=== PATIENT | female | born 1950 | race Caucasian/White ===

== ENCOUNTER → 2017-12-08 | Outpatient (CLI) | payer MEDICARE ==
--- NOTE | 2017-12-14 12:22 | MM ---
Reason for exam: screening (asymptomatic). Last mammogram was performed 1 year and 10 months ago. History: Patient is postmenopausal and had first child at age 33. Family history of breast cancer in sister at age 60. Physical Findings: A clinical breast exam by your physician is recommended on an annual basis and results should be correlated with mammographic findings. MG 3D Screening Mammo W/Cad Bilateral CC and MLO view(s) were taken. Prior study comparison: February 13, 2016, mammogram, performed at [facility]. August 18, 2014, mammogram, performed at [facility]. There are scattered fibroglandular densities. Finding: There is a 9 mm mass in the subareolar position of the right breast. ASSESSMENT: Incomplete: need additional imaging evaluation, BI-RAD 0 RECOMMENDATION: Special view mammogram of the right breast. If lesion persists on supplemental views, image directed ultrasound is recommended. [facility] will attempt to contact patient to return for supplemental views and ultrasound if indicated.
== END | disposition home or self-care (01) ==
LOC: RADMAMWWP 10:31
PROVIDERS: ATTEND Obstetrics & Gynecology
DX: Z12.31 Encounter for screening mammogram for malignant neoplasm of breast (principal)
CPT/HCPCS: 77063; 77067

== ENCOUNTER → 2017-12-16 | Outpatient (CLI) | payer MEDICARE ==
--- NOTE | 2017-12-16 14:17 | MM ---
Reason for exam: additional evaluation requested from abnormal screening. Last mammogram was performed less than 1 month ago. History: Patient is postmenopausal and had first child at age 33. Family history of breast cancer in sister at age 60. Physical Findings: Nurse did not find any significant physical abnormalities on exam. MG 3D Work Up W/Cad RT Spot compression CC, spot compression MLO, and ML view(s) were taken of the right breast. Prior study comparison: December 08, 2017, bilateral MG 3d screening mammo w/cad. February 13, 2016, mammogram, performed at [facility]. Nodule persists ultrasound recommended. These results were verbally communicated with the patient and result sheet given to the patient on 12/16/17. ASSESSMENT: Incomplete: need additional imaging evaluation, BI-RAD 0 RECOMMENDATION: Ultrasound of the right breast.
--- NOTE | 2017-12-16 14:19 | USB ---
Reason for exam: additional evaluation requested from abnormal screening. History: Patient is postmenopausal and had first child at age 33. Family history of breast cancer in sister at age 60. US Breast Workup Limited RT Right limited breast ultrasound including focal area of concern, retroareolar and axilla demonstrates a 6 x 3 x 4mm mixed, hypoechoic lesion at the posterior nipple. These results were verbally communicated with the patient and result sheet given to the patient on 12/16/17. ASSESSMENT: Suspicious, BI-RAD 4 RECOMMENDATION: Ultrasound core biopsy of the right breast. Called Dr. Oconnell with mammographic findings. Biopsy scheduled for 12/23/17 at 2 o'clock. PRELIMINARY REPORT CALLED AND FAXED TO DR. OCONNELL ON 12/16/17.
== END | disposition home or self-care (01) ==
LOC: RADMAMWWP 11:01
PROVIDERS: ATTEND Obstetrics & Gynecology
DX: R92.8 Other abnormal and inconclusive findings on diagnostic imaging of breast (principal)
CPT/HCPCS: 77065; 76642; G0279; 77061

== ENCOUNTER → 2017-12-22 | Day surgery (SDC) | payer MEDICARE ==
[2017-12-22 13:28] VITALS: RESP 16; BMI 36.7
--- NOTE | 2017-12-22 14:47 | USB ---
ULTRASOUND GUIDED CORE BIOPSY RIGHT BREAST: CLINICAL HISTORY: Request for biopsy of a 6 mm right breast lesion at the 9:00 position FINDINGS: The procedure was explained to the patient. The risks, complications, benefits and alternatives were discussed and any questions were answered. Informed consent was obtained. Patient was placed supine on the ultrasound table and prepped and draped in the usual sterile fashion. Utilizing a 16 gauge needle, five passes were made into the requested nodule. Next Surgical clip was placed. Mammogram demonstrated ideal placement of the clip post procedure Patient was stable throughout the procedure. Pathology is pending. All elements of maximal barrier technique were utilized. IMPRESSION: 1. Successful ultrasound guided core biopsy right breast nodule. Pathology Results: Benign RIGHT BREAST, 9:00, ULTRASOUND GUIDED CORE BIOPSY: Fibrocystic changes including fibrosis, cysts and chronic inflammation. Recommendation Follow up mammogram of the right breast in 6 months. DEO
--- NOTE | 2017-12-22 14:57 | MM ---
Reason for exam: additional evaluation requested from abnormal screening. Last mammogram was performed less than 1 month ago. History: Patient is postmenopausal and had first child at age 33. Family history of breast cancer in sister at age 60. MG Diagnostic Mammo RT Wo CAD CC and MLO view(s) were taken of the right breast. Prior study comparison: December 16, 2017, right breast MG 3d work up w/cad RT. December 08, 2017, bilateral MG 3d screening mammo w/cad. ASSESSMENT: Post procedure mammogram for marker placement RECOMMENDATION: Ultrasound of the right breast in 6 months. PENDING PATHOLOGY RESULTS.
[2017-12-22 14:59] VITALS: BP 106/68; PULSE 72; TEMP 98
== END ==
LOC: RADUSWWP 12:58
PROVIDERS: ATTEND Obstetrics & Gynecology
DX: N60.31 Fibrosclerosis of right breast (principal)
CPT/HCPCS: 88305; 77065; 19083; A4648; J2001

== ENCOUNTER → 2018-07-29 | Outpatient (CLI) | payer MEDICARE ==
--- NOTE | 2018-07-29 11:46 | MM ---
Reason for exam: follow-up at short interval from prior study. Last mammogram was performed 7 months ago. History: Patient is postmenopausal, history of other cancer, and had first child at age 33. Family history of breast cancer in sister at age 60 and breast cancer in paternal cousin. Benign US breast needle core RT of the right breast, December 22, 2017. Physical Findings: Nurse did not find any significant physical abnormalities on exam. MG 3D Diag Mammo W/Cad RT CC, MLO, and XCCL view(s) were taken of the right breast. Prior study comparison: December 22, 2017, right breast MG diagnostic mammo RT wo CAD. December 16, 2017, right breast MG 3d work up w/cad RT. There are scattered fibroglandular densities. Previous mammotome biopsy in the right breast at the site of recent benign biopsy. No significant new findings when compared with previous films. These results were verbally communicated with the patient and result sheet given to the patient on 07/29/18. ASSESSMENT: Incomplete: need additional imaging evaluation, BI-RAD 0 RECOMMENDATION: Ultrasound of the right breast. (as ordered)
--- NOTE | 2018-07-29 11:48 | USB ---
Reason for exam: follow-up at short interval from prior study. History: Patient is postmenopausal, history of other cancer, and had first child at age 33. Family history of breast cancer in sister at age 60 and breast cancer in paternal cousin. Benign US breast needle core RT of the right breast, December 22, 2017. US Breast RT Right complete breast ultrasound includes all four quadrants, the retroareolar region and axilla. Finding demonstrates a 4 x 3 x 4mm oval, solid, hypoechoic lesion at the posterior nipple, previously biopsied, benign and a 8mm oval lymph node at the axilla tail, prominent, benign appearing node, stable. These results were verbally communicated with the patient and result sheet given to the patient on 07/29/18. ASSESSMENT: Benign, BI-RAD 2 RECOMMENDATION: Return to routine screening mammogram schedule for both breasts.
== END | disposition home or self-care (01) ==
LOC: RADMAMWWP 09:45
PROVIDERS: ATTEND Obstetrics & Gynecology
DX: R92.8 Other abnormal and inconclusive findings on diagnostic imaging of breast (principal)
CPT/HCPCS: 77065; 76641; G0279; 77061

== ENCOUNTER → 2019-04-27 | Outpatient (CLI) | payer MEDICARE, OTHER ==
--- NOTE | 2019-04-28 09:13 | MM ---
Reason for exam: screening (asymptomatic). Last mammogram was performed 9 months ago. History: Patient is postmenopausal, has history of other cancer at age 59, and had first child at age 33. Family history of breast cancer in sister at age 60 and breast cancer in paternal cousin. Benign US breast needle core RT of the right breast, December 22, 2017. Took other hormone for 15 years. Physical Findings: A clinical breast exam by your physician is recommended on an annual basis and results should be correlated with mammographic findings. MG 3D Screening Mammo W/Cad Bilateral CC and MLO view(s) were taken. Prior study comparison: July 29, 2018, right breast MG 3d diag mammo w/cad RT. December 22, 2017, right breast MG diagnostic mammo RT wo CAD. There are scattered fibroglandular densities. There are benign appearing round calcifications bilaterally. Previous mammotome biopsy in the right breast. There is no discrete abnormality. ASSESSMENT: Benign, BI-RAD 2 RECOMMENDATION: Routine screening mammogram of both breasts in 1 year.
== END | disposition home or self-care (01) ==
LOC: RADMAMWWP 15:13
PROVIDERS: ATTEND Obstetrics & Gynecology
DX: Z12.31 Encounter for screening mammogram for malignant neoplasm of breast (principal)
CPT/HCPCS: 77063; 77067

== ENCOUNTER 2019-08-23 07:34 | Day surgery (SDC) | payer MEDICARE ==
[2019-08-19 14:35] VITALS: BMI 38.2
[2019-08-23 07:52] VITALS: RESP 16; TEMP 96.5
[2019-08-23] MEDS ORDERED: LACTATED RINGERS 1,000 ML IV ONE (08:05)
[2019-08-23] MEDS ORDERED: PROPOFOL 10 MG/ML 20 ML VIAL IV ONE (08:24)
--- NOTE | 2019-08-23 08:28 | P.GSHP ---
History of Present Illness H&P Date: 08/23/19 Chief Complaint: Colon cancer screening Patient here today for colonoscopy. Both her mother and grandfather had colon cancer. Her last colonoscopy was 6-7 years ago. No bowel related complaints. Past Medical History Past Medical History: GERD/Reflux, Hypertension, Osteoarthritis (OA) History of Any Multi-Drug Resistant Organisms: None Reported Past Surgical History: Adenoidectomy, Bladder Surgery, Cholecystectomy, Hernia Repair, Hysterectomy, Orthopedic Surgery, Tonsillectomy Additional Past Surgical History / Comment(s): Shoulder & knee surgery, bilat eral bunionectomy,esophageal dilitation, skin cancer on face. Past Anesthesia/Blood Transfusion Reactions: No Reported Reaction Past Psychological History: No Psychological Hx Reported Past Alcohol Use History: None Reported Past Drug Use History: None Reported - Past Family History Mother Family Medical History: Cancer Additional Family Medical History / Comment(s): rectal cancer Sister(s) Family Medical History: Cancer Additional Family Medical History / Comment(s): breast cancer at 60 Father Family Medical History: Hypertension Additional Family Medical History / Comment(s): Parkinsons Medications and Allergies Home Medications Medication Instructions Recorded Confirmed Type Aspirin [Adult Low Dose Aspirin EC] 81 mg PO DAILY 12/17/17 08/19/19 History Lisinopril [Zestril] 1 tab PO DAILY 12/17/17 08/19/19 History Omeprazole [PriLOSEC] 20 mg PO DAILY 12/17/17 08/19/19 History Zolpidem [Ambien] 5 mg PO HS PRN 12/17/17 08/19/19 History Cholecalciferol [Vitamin D3] 400 unit PO DAILY 08/19/19 08/19/19 History Fish Oil/Dha/Epa [Fish Oil 1,200 2,400 units PO DAILY 08/19/19 08/19/19 History mg Fish Oil] PARoxetine HCL [Paxil] 20 mg PO DAILY 08/19/19 08/19/19 History Allergies Allergy/AdvReac Type Severity Reaction Status Date / Time Penicillins Allergy Rash/Hives Verified 08/23/19 07:46 Sulfa (Sulfonamide Allergy Rash/Hives Verified 08/23/19 07:46 Antibiotics) Surgical - Exam Vital Signs Temp Pulse Resp BP Pulse Ox 96.5 F L 103 H 16 125/78 95 08/23/19 07:51 08/23/19 07:51 08/23/19 07:51 08/23/19 07:51 08/23/19 07:51 Physical exam: General: Well-developed, well-nourished HEENT: Normocephalic, sclerae nonicteric Abdomen: Nontender, nondistended Extremities: No edema Neuro: Alert and oriented Assessment and Plan (1) Colon cancer screening Narrative/Plan: Will proceed with colonoscopy at this time Current Visit: Yes Status: Acute Code(s): Z12.11 - ENCOUNTER FOR SCREENING FOR MALIGNANT NEOPLASM OF COLON SNOMED Code(s): 524777727
--- NOTE | 2019-08-23 08:41 | P.PCN ---
Date of Procedure: 08/23/19 Procedure(s) Performed: PREOPERATIVE DIAGNOSIS: Colon cancer screening, family history of colon cancer in mother POSTOPERATIVE DIAGNOSIS: Small rectal polyp, diverticulosis PROCEDURE: Colonoscopy with biopsy ANESTHESIA: MAC SURGEON: Winston Gann M.D. SPECIMENS: Rectal polyp ENDOSCOPIC PROCEDURE: The patient was placed on the endoscopy table in the left decubitus position. The Olympus colonoscope was inserted into the anus and passed under direct visualization to the base of the cecum. The appendiceal orifice was visualized. From that point the scope was slowly withdrawn inspecting all surfaces carefully. There were no neoplastic inflammatory or polypoid lesions throughout the cecum, ascending, transverse, descending, and sigmoid colon. In the rectum a small polyp was seen and removed using the cold biopsy forceps. There was mild scattered diverticulosis seen throughout the colon. Digital rectal examination was normal. The patient was taken to the recovery room in stable condition per anesthesia guidelines. RECOMMENDATIONS: Await biopsy results. Follow-up colonoscopy 5 years.
[2019-08-23 08:58] VITALS: BP 110/63; PULSE 73
== END 2019-08-23 09:19 ==
LOC: ORWHC2ENDO 07:34
PROVIDERS: ATTEND Surgery
DX: K62.1 Rectal polyp (principal); K57.30 Diverticulosis of large intestine without perforation or abscess without bleeding; I10 Essential (primary) hypertension; K21.9 Gastro-esophageal reflux disease without esophagitis; M19.90 Unspecified osteoarthritis, unspecified site; Z90.49 Acquired absence of other specified parts of digestive tract; Z87.19 Personal history of other diseases of the digestive system; Z90.89 Acquired absence of other organs; Z98.890 Other specified postprocedural states; Z80.0 Family history of malignant neoplasm of digestive organs; Z90.710 Acquired absence of both cervix and uterus; Z85.828 Personal history of other malignant neoplasm of skin; Z80.3 Family history of malignant neoplasm of breast; Z79.82 Long term (current) use of aspirin; Z79.899 Other long term (current) drug therapy; Z88.0 Allergy status to penicillin; Z88.2 Allergy status to sulfonamides; Z82.49 Family history of ischemic heart disease and other diseases of the circulatory system
CPT/HCPCS: 88305; 45380; J2704

== ENCOUNTER → 2020-08-13 | Outpatient (CLI) | payer MEDICARE | END | disposition home or self-care (01) | DX: Z12.31 Encounter for screening mammogram for malignant neoplasm of breast (principal); Z80.3 Family history of malignant neoplasm of breast | CPT/HCPCS: 77063; 77067 ==

== ENCOUNTER 2020-11-30 08:47 | Day surgery (SDC) | payer MEDICARE ==
[2020-11-28 12:26] VITALS: BMI 38.2
[~2020-11-30 08:47] MED LIST: DEXAMETHASONE SOD PHOSPHATE 4 MG/ML 1 ML VIAL IV ONE; HYDROmorphone 0.5 MG/0.5 ML SYRINGE IVP PRN; LACTATED RINGERS 1,000 ML IV SCH; MIDAZOLAM 2 MG/2 ML VIAL IV PRN; ONDANSETRON 4 MG/2 ML VIAL IVP ONE
[2020-11-30 09:27] VITALS: TEMP 96.8
[2020-11-30] MEDS ORDERED: LIDOCAINE 1% (10MG/ML) FOR IV START INTRADERMA ONE (09:56)
[2020-11-30] MEDS ORDERED: MIDAZOLAM 2 MG/2 ML VIAL IVP ONE (10:17)
[2020-11-30] MEDS ORDERED: ePHEDrine SULFATE/0.9% NACL/PF 50 MG/5 ML SYRINGE IV ONE (11:26)
[2020-11-30] MEDS ORDERED: KETAMINE 10 MG/ML 20 ML VIAL ONE (11:26)
[2020-11-30] MEDS ORDERED: fentaNYL (PF) 50 MCG/ML 2 ML AMP ONE (11:26)
[2020-11-30] MEDS ORDERED: PROPOFOL 10 MG/ML 20 ML VIAL IV ONE (11:26)
[2020-11-30] MEDS ORDERED: DEXAMETHASONE SOD PHOSPHATE 4 MG/ML 1 ML VIAL ONE (11:26)
[2020-11-30] MEDS ORDERED: LIDOCAINE 1% INJ 10MG/ML (20 ML MDV) ONE (11:26)
[2020-11-30] MEDS ORDERED: MIDAZOLAM 2 MG/2 ML VIAL ONE (11:26)
[2020-11-30] MEDS ORDERED: SUCCINYLCHOLINE CHLORIDE 100 MG/5 ML SYR IV ONE (11:26)
[2020-11-30] MEDS ORDERED: ROPIVACAINE 5 MG/ML 30 ML VIAL ONE (11:26)
[2020-11-30] MEDS ORDERED: SODIUM CHLORIDE 0.9% 100 ML with CLINDAMYCIN 600 MG IV ONE ×2 (11:35)
[2020-11-30] MEDS ORDERED: LACTATED RINGERS 1,000 ML IV ONE (12:30)
--- NOTE | 2020-11-30 13:12 | XR ---
EXAMINATION TYPE: XR ankle complete RT DATE OF EXAM: 11/30/2020 COMPARISON: NONE HISTORY: Postop TECHNIQUE: 2 views submitted FINDINGS: Postoperative change appears in near-anatomic alignment. IMPRESSION: Postop
--- NOTE | 2020-11-30 13:12 | FL ---
EXAMINATION TYPE: FL guidance operating room DATE OF EXAM: 11/30/2020 HISTORY: Fluoroscopy time 49 seconds of fluoroscopy provided. IMPRESSION: 1. Fluoroscopy time.
[2020-11-30 13:32] VITALS: RESP 16
--- NOTE | 2020-11-30 14:47 | P.OP ---
Date of Procedure: 11/30/20 Preoperative Diagnosis: Osteoarthritis right ankle Postoperative Diagnosis: Same Procedure(s) Performed: Right ankle arthrodesis Implants: Arthrex anterior ankle fusion plate [employer] Arthrex Arthrocell Anesthesia: GETA Surgeon: Raghav Felipe Estimated Blood Loss (ml): 5 Pathology: none sent Condition: stable Disposition: PACU Indications for Procedure: Severe DJD the right ankle Operative Findings: Full thickness cartilage loss on both the talar dome as well as the tibial surface of the ankle joint Description of Procedure: Prior to the patient being brought to the operating room anesthesia administered nerve block in the right lower extremity under ultrasonic guidance utilizing mild sedation. Patient is a broad the operating room placed on table supine position. Timeout was taken to confirm correct patient, correct site of surgery and correct procedure. Once confirmed the patient was induced and placed under general anesthesia. Tourniquet was placed in the right thigh. A wedge underneath the right hip to internally rotate the right leg. The right leg was prepped and draped usual manner The leg was exsanguinated the tourniquet inflated 250 mmHg. attention was directed over the anterior aspect of the ankle where a linear incision was made between the tibialis anterior and extensor hallucis longus tendons. Incision was deepened through the subcutaneous layer c areful to identify, avoid, and retract any neurovascular structures and cauterize any bleeding vessels. The periosteal incision was made just medial to the tibialis anterior tendon and then subperiosteal dissection was performed to expose the the ankle joint as well as a dorsal surface of the talar neck. Utilizing various osteotomes and curettes the articular cartilage was removed from the tibiotalar surface. Osteotomes were then used to fish scale the subchondral bone. The 2.0mm drill bit was then used to aggressively fenestrate both conjoining surfaces of the arthrodesis. A mixture of [employer] and Arthrex Arthrocell was placed between the arthrodesis surfaces. An Arthrex anterior ankle fusion plate was then positioned and temporarily fixated. Fluoroscopy was used to check the position of the ankle. Adjustments were made to keep the ankle at 90 with slight posterior translation of the talus within the ankle mortise. Once positioning was acceptable on fluoroscopy a wire was placed medial through the tibia across the arthrodesis site to maintain the positioning and then the plate was also temporarily fixated onto the tibia and talus. Distal locking screws were placed through the talus first. Then a hole was eccentric predrilled and the compression slot of the proximal portion of the plate on the tibia. The screws inserted and then once the screw engaged the plate provided compression across the arthrodesis site. The drill hole was made through the interfrag compression hole on the plate. Overdrill was performed to the ankle joint and then a large cancellous screw was inserted and advanced into the talus further compressing the joint. 2 additional locking screws were placed in the talus distally and 3 proximal to the ankle joint. Final fluoro scopic imaging showed a stable construct with good compression across the joint space. All hardware was properly positioned. The wound is then irrigated with normal saline. Deep closure was done with 0 Vicryl. Subcutaneous closure done with 4-0 Monocryl. Skin closure done with zara. An Arthrex jumpstart dressing was placed over the incision. A bulky dry dressings applied to the right foot and ankle. The tourniquet was released and capillary refill return to all digits on the right foot. Then a well-padded, well molded plaster posterior mold/sugar tong splint was applied to the right leg. Once dry the patient was transferred to the recovery with vital signs stable.
[2020-11-30 14:55] VITALS: BP 125/70; PULSE 63
--- NOTE | 2020-12-02 19:35 | P.ANPRN ---
Procedure Note - Anesthesia - Nerve Block Performed Right Popliteal Single Time Out Performed: Yes Date of Procedure: 11/30/20 Procedure Start Time: : Procedure Stop Time: Location of Patient: PreOp Indication: Acute Post-Operative Pain, Requested by Surgeon Sedation Type: Sedate with meaningful contact maintained Preparation: Sterile Prep Position: Left Lateral Needle Types: Pajunk Needle Gauge: 21 Ultrasound used to visualize needle placement: Yes Ultrasound used to observe medication spread: Yes Resistance on Injection: Normal Image Stored and Saved: Yes Events: Uneventful and Well Tolerated (ropi .5% 20cc plus dexamethasone 4mg)
--- NOTE | 2020-12-02 19:36 | P.ANPRN ---
Procedure Note - Anesthesia - Nerve Block Performed Right Adductor Canal Single Time Out Performed: Yes Date of Procedure: 11/30/20 Procedure Start Time: Procedure Stop Time: Location of Patient: PreOp Indication: Acute Post-Operative Pain, Requested by Surgeon Sedation Type: Sedate with meaningful contact maintained Preparation: Sterile Prep Position: Supine Needle Types: Pajunk Needle Gauge: 21 Ultrasound used to visualize needle placement: Yes Ultrasound used to observe medication spread: Yes Blood Aspirated: No Pain Paresthesia on Injection Noted: No Resistance on Injection: Normal Image Stored and Saved: Yes Events: Uneventful and Well Tolerated (ropi .5% 20cc plus dexamethasone 4mg)
== END 2020-11-30 15:16 | disposition home or self-care (01) ==
LOC: OR 08:47
PROVIDERS: ATTEND Podiatrist
DX: M19.071 Primary osteoarthritis, right ankle and foot (principal); I10 Essential (primary) hypertension; E78.5 Hyperlipidemia, unspecified; R00.2 Palpitations; K21.9 Gastro-esophageal reflux disease without esophagitis; Z85.828 Personal history of other malignant neoplasm of skin; Z97.3 Presence of spectacles and contact lenses; F41.9 Anxiety disorder, unspecified; G47.00 Insomnia, unspecified; E66.9 Obesity, unspecified; Z68.36 Body mass index [BMI] 36.0-36.9, adult; Z86.010 Personal history of colon polyps; E55.9 Vitamin D deficiency, unspecified; Z90.710 Acquired absence of both cervix and uterus; Z98.890 Other specified postprocedural states; Z83.3 Family history of diabetes mellitus; Z82.49 Family history of ischemic heart disease and other diseases of the circulatory system; Z87.891 Personal history of nicotine dependence; Z79.1 Long term (current) use of non-steroidal anti-inflammatories (NSAID); Z79.82 Long term (current) use of aspirin; Z79.899 Other long term (current) drug therapy; Z88.0 Allergy status to penicillin; Z88.2 Allergy status to sulfonamides
CPT/HCPCS: 27870; 64447; 64445; 76942; 73610; C1713 ×2; J2250; J1100; J2405; J2001; J3010; J2795; J0330; J2704

== ENCOUNTER → 2021-10-11 | Outpatient (CLI) | payer MEDICARE ==
--- NOTE | 2021-10-15 06:46 | MM ---
Reason for Exam: Screening (asymptomatic). Last mammogram was performed 1 year(s) and 2 month(s) ago. Patient History: Menarche at age 15. First Full-Term at age 33. Late child-bearing (after 30). Left ovary removed at age 43. Right ovary removed at age 43. Hysterectomy at age 43. Postmenopausal. Other cancer, age 59. 12/22/2017, Benign Core Biopsy on the right side. Paternal cousin had breast cancer. Sister had breast cancer, age 60. Risk Values: Blessing 5 year model risk: 3.7%. NCI Lifetime model risk: 10.7%. Prior Study Comparison: 08/18/2014 Screening Mammogram, [facility]. 02/13/2016 Screening Mammogram, [facility]. 12/16/2017 Right Diagnostic Mammogram, [facility]. 12/16/2017 Right Diagnostic Ultrasound, [facility]. 12/22/2017 Right Diagnostic Mammogram, [facility]. 07/29/2018 Right Diagnostic Mammogram, [facility]. 07/29/2018 Right Diagnostic Ultrasound, [facility]. 04/27/2019 Bilateral Screening Mammogram, [facility]. 08/13/2020 Bilateral Screening Mammogram, [facility]. Tissue Density: The breast tissue is almost entirely fat. Findings: Analyzed By CAD. Mammotome biopsy clip upper outer right breast anteriorly redemonstrated. There is no suspicious group of microcalcifications or new suspicious mass in either breast. Overall Assessment: Benign, BI-RAD 2 Management: Screening Mammogram of both breasts in 1 year. A clinical breast exam by your physician is recommended on an annual basis and results should be correlated with mammographic findings. Electronically signed and approved by: Jones Haynes M.D.
== END | disposition home or self-care (01) ==
LOC: RADMAMWWP 14:35
PROVIDERS: ATTEND Family Medicine
DX: Z12.31 Encounter for screening mammogram for malignant neoplasm of breast (principal)
CPT/HCPCS: 77063; 77067

== ENCOUNTER → 2022-11-24 | Outpatient (CLI) | payer MEDICARE ==
--- NOTE | 2022-11-26 09:21 | MM ---
Reason for Exam: Screening (asymptomatic). Last mammogram was performed 1 year(s) and 1 month(s) ago. Patient History: Menarche at age 15. First Full-Term at age 33. Late child-bearing (after 30). Left ovary removed at age 43. Right ovary removed at age 43. Hysterectomy at age 43. Postmenopausal. Other cancer, age 59. 12/22/2017, Benign Core Biopsy on the right side. Paternal cousin had breast cancer. Sister had breast cancer, age 60. Risk Values: Blessing 5 year model risk: 3.8%. NCI Lifetime model risk: 10.2%. Prior Study Comparison: 04/27/2019 Bilateral Screening Mammogram, [facility]. 08/13/2020 Bilateral Screening Mammogram, [facility]. 10/11/2021 Bilateral MG 3D screening mammo w/cad, [facility]. Tissue Density: The breast tissue is almost entirely fat. Findings: Analyzed By CAD. There is no suspicious group of microcalcifications or new suspicious mass in either breast. Overall Assessment: Negative, BI-RAD 1 Management: Screening Mammogram of both breasts in 1 year. . Patient should continue monthly self-breast exams. A clinical breast exam by your physician is recommended on an annual basis. This exam should not preclude additional follow-up of suspicious palpable abnormalities. Note on Blessing scores and lifetime risk: 1. A Blessing score greater than 3% is considered moderate risk. If this is the case, consider specialist referral to assess eligibility for a risk reducing agent. 2. If overall lifetime risk for the development of breast cancer is 20% or higher, the patient may qualify for future screening with alternating mammogram and breast MRI. Electronically signed and approved by: Yobany Damon M.D. Radiologis
== END | disposition home or self-care (01) ==
LOC: RADMAMWWP 12:25
PROVIDERS: ATTEND Family Medicine
DX: Z12.31 Encounter for screening mammogram for malignant neoplasm of breast (principal); Z80.3 Family history of malignant neoplasm of breast; Z78.0 Asymptomatic menopausal state
CPT/HCPCS: 77063; 77067

== ENCOUNTER → 2023-06-09 | Outpatient (CLI) | payer MEDICARE ==
--- NOTE | 2023-06-10 07:06 | CA ---
Transthoracic Echo Report Name: Angie Graf Age: 72 Gender: F : 1950 Exam Date: 06/09/2023 13:39 Exam Location: [facility] Ht (in): 64 Wt (lb): 230 Ordering Physician: Wilbert Lin MD Attending/Referring Phys: Wilbert Lin MD Shank Skinner Bernadine Hernandez RDCS Procedure CPT: Indications: R00.2 palpitations Cardiac Hx: Technical Quality: Good Contrast 1: Total Dose (mL): Contrast 2: Total Dose (mL): MEASUREMENTS (Male / Female) Normal Values 2D ECHO LV Diastolic Diameter PLAX 4.2 cm 4.2 - 5.9 / 3.9 - 5.3 cm LV Systolic Diameter PLAX 3.0 cm IVS Diastolic Thickness 1.1 cm 0.6 - 1.0 / 0.6 - 0.9 cm LVPW Diastolic Thickness 1.1 cm 0.6 - 1.0 / 0.6 - 0.9 cm LV Relative Wall Thickness 0.5 RV Internal Dim ED PLAX 3.0 cm LA Systolic Diameter LX 3.4 cm 3.0 - 4.0 / 2.7 - 3.8 cm LV Diastolic Volume MOD BP 47.7 cm??? 67 - 155 / 56 - 104 cm??? LV Systolic Volume MOD BP 19.9 cm??? 22 - 58 / 19 - 49 cm??? LV Ejection Fraction MOD BP 58.3 % >= 55 % LV Cardiac Index MOD BP 875.4 cm???/min???m??? LV Diastolic Volume MOD 4C 50.2 cm??? LV Systolic Volume MOD 4C 20.3 cm??? LV Ejection Fraction MOD 4C 59.6 % LV Cardiac Index MOD 4C 940.9 cm???/min???m??? LV Diastolic Length 4C 6.7 cm LV Systolic Length 4C 5.6 cm LV Diastolic Volume MOD 2C 45.4 cm??? LV Systolic Volume MOD 2C 17.9 cm??? LV Ejection Fraction MOD 2C 60.5 % LV Cardiac Index MOD 2C 865.7 cm???/min???m??? LV Diastolic Length 2C 6.5 cm LV Systolic Length 2C 6.3 cm LA Volume 37.7 cm??? 18 - 58 / 22 - 52 cm??? LA Volume Index 17.0 cm???/m??? 16 - 28 cm???/m??? M-MODE Aortic Root Diameter MM 3.2 cm MV E Point Septal Separation 1.2 cm AV Cusp Separation MM 2.0 cm DOPPLER AV Peak Velocity 109.4 cm/s AV Peak Gradient 4.8 mmHg MV Area PHT 2.5 cm??? Mitral E Point Velocity 56.4 cm/s Mitral A Point Velocity 81.1 cm/s Mitral E to A Ratio 0.7 MV Deceleration Time 305.6 ms FINDINGS Left Ventricle Left ventricular ejection fraction is estimated at 55-60 %. Left ventricular cavity size normal. Mildly increased septal wall thickness. Mildly increased posterior wall thickness. No obvious regional wall motion abnormalities. Right Ventricle Normal right ventricular size. Unable to estimate the right ventricular systolic pressure. Right Atrium Right atrium not well visualized. Left Atrium Normal left atrial size. No spontaneous echo contrast seen in the left atrium. Mitral Valve Structurally normal mitral valve. No mitral stenosis, regurgitation or prolapse. Aortic Valve Trileaflet aortic valve. No aortic valve stenosis or regurgitation. Tricuspid Valve Structurally normal tricuspid valve. No tricuspid stenosis, regurgitation or prolapse. Pulmonic Valve Pulmonic valve not well visualized. Pericardium Trace pericardial effusion Aorta Normal size aortic root and proximal ascending aorta. CONCLUSIONS Technically difficult study Normal LV systolic function No significant valvular abnormalities Trace pericardial effusion Previewed by: Dr. Nicanor Velasquez MD (Electronically Signed) Final Date: 10 Jun 2023 07:05
== END | disposition home or self-care (01) ==
LOC: RADECHMAIN 13:27
PROVIDERS: ATTEND Family Medicine
DX: I31.39 Other pericardial effusion (noninflammatory) (principal); R00.2 Palpitations
CPT/HCPCS: 93306

== ENCOUNTER → 2023-06-11 | Outpatient (CLI) | payer MEDICARE ==
--- NOTE | 2023-06-22 06:24 | CE ---
CARDIAC ELECTROPHYSIOLOGY REPORT STUDY: A 24-hour Holter monitor. INDICATIONS: Rule out cardiac arrhythmia. FINDINGS: The patient was monitored for 24 hours. The baseline rhythm appeared to be sinus mechanism. Ventricular ectopic events noted in less than 1% of the total beats count as well as supraventricular ectopic events. No significant sinus pause or sinus arrest. CONCLUSION: 1. Sinus rhythm as a baseline mechanism. 2. Rare ventricular and supraventricular ectopic events. 3. No significant sinus pause or sinus arrest. MMODL / IJN: [id number] /
== END | disposition home or self-care (01) ==
LOC: RADECHMAIN 07:33
PROVIDERS: ATTEND Family Medicine
DX: R00.2 Palpitations (principal); I49.8 Other specified cardiac arrhythmias; I49.3 Ventricular premature depolarization
CPT/HCPCS: 93225; 93226

== ENCOUNTER → 2023-12-11 | Outpatient (CLI) | payer MEDICARE ==
--- NOTE | 2023-12-14 13:10 | MM ---
Reason for Exam: Screening (asymptomatic). Last mammogram was performed 1 year(s) and 1 month(s) ago. Patient History: Menarche at age 15. First Full-Term at age 33. Late child-bearing (after 31). Left ovary removed at age 43. Right ovary removed at age 43. Hysterectomy at age 43. Postmenopausal. Other cancer, age 59. 12/22/2017, Benign Core Biopsy on the right side. Paternal cousin had breast cancer. Sister had breast cancer, age 60. Risk Values: Blessing 5 year model risk: 3.8%. NCI Lifetime model risk: 9.7%. Prior Study Comparison: 08/13/2020 Bilateral Screening Mammogram, [facility]. 10/11/2021 Bilateral MG 3D screening mammo w/cad, [facility]. 11/24/2022 Bilateral MG 3D screening mammo w/cad, [facility]. Tissue Density: There are scattered areas of fibroglandular density. Findings: Analyzed By CAD. There is no suspicious group of microcalcifications or new suspicious mass in either breast. Postsurgical clips right breast. Overall Assessment: Benign, BI-RAD 2 Management: Screening Mammogram of both breasts in 1 year. . Patient should continue monthly self-breast exams. A clinical breast exam by your physician is recommended on an annual basis. This exam should not preclude additional follow-up of suspicious palpable abnormalities. Note on Blessing scores and lifetime risk: 1. A Blessing score greater than 3% is considered moderate risk. If this is the case, consider specialist referral to assess eligibility for a risk reducing agent. 2. If overall lifetime risk for the development of breast cancer is 20% or higher, the patient may qualify for future screening with alternating mammogram and breast MRI. [facility], , 12/14/2023 1:06 PM. Electronically signed and approved by: Elliott Govea M.D. Radiologis
== END | disposition home or self-care (01) ==
LOC: RADMAMWWP 13:01
PROVIDERS: ATTEND Family Medicine
DX: Z12.31 Encounter for screening mammogram for malignant neoplasm of breast (principal); R92.323 Mammographic fibroglandular density, bilateral breasts; Z80.3 Family history of malignant neoplasm of breast
CPT/HCPCS: 77063; 77067

== ENCOUNTER → 2024-03-11 | Outpatient (CLI) | payer MEDICARE ==
--- NOTE | 2024-03-11 15:46 | CT ---
EXAMINATION TYPE: CT right knee - AFIA Protocol DATE OF EXAM: 03/11/2024 12:44 PM COMPARISON: None. CLINICAL INDICATION: Female, 73 years old with history of M25.561 PAIN IN RIGHT KNEE, Right AFIA knee ., TECHNIQUE: Contiguous axial scanning of the pelvis, right knee, and bilateral ankles without IV contr ast. Coronal and sagittal reconstructions performed. CT DLP: 833 mGycm. Automated exposure control for dose reduction was used. FINDINGS: Pelvis: There is pelvic floor relaxation. Mild degenerative change at both hips. No significant hip joint eff usion. Patient status post hysterectomy. Right knee: Moderate to severe osteoarthritic change throughout the knee. Moderate knee joint effusion noted. The re is a small to moderate-sized Gibbs's cyst measuring 4.9 cm. Extensor mechanism is intact. Ankles: Previous tibiotalar surgical arthrodesis with anterior plate and screw fixation on the right. Mature bony ankylosis is present. Mild to moderate degenerative change along the posterior subtalar joint. S mall plantar heel spur. IMPRESSION: 1. Pelvis: Pelvic floor relaxation. Mild bilateral hip OA. 2. Right knee: Moderate to severe osteoarthritic change. Moderate knee joint effusion likely reactiv e. Small to moderate-sized 4.9 cm Gibbs cyst. 3. Ankles: Previous tibiotalar surgical arthrodesis on the right. [facility], , 03/11/2024 3:44 PM
== END | disposition home or self-care (01) ==
LOC: RADCTMAIN 11:55
PROVIDERS: ATTEND Orthopaedic Surgery
DX: M17.11 Unilateral primary osteoarthritis, right knee (principal); M16.0 Bilateral primary osteoarthritis of hip

== ENCOUNTER → 2024-04-15 | Outpatient (CLI) | payer MEDICARE ==
[2024-04-15 15:26] LABS: HCT 44.1 % (37.2-46.3); HGB 14.2 g/dL (12.0-15.0); MCH 30.2 pg (27.0-32.0); MCHC 32.2 g/dL (32.0-37.0); MCV 93.8 FL (80.0-97.0); Mean Platelet Volume 12.2 FL (9.5-12.2); NRBC Per 100 WBC 0 X 10*3/uL (0.00-0.01); Platelet Count 251 X 10*3/uL (140-440); RDW 12.8 % (11.5-14.5); WBC 4.25 X 10*3/uL (4.50-10.00)
[2024-04-15 15:32] LABS: ALT 23 U/L (8-44); AST 28 U/L (13-35); Alkaline Phosphatase 59 U/L (41-126); BUN/Creat Ratio 8.86 Ratio (12.00-20.00); Blood Urea Nitrogen 6.2 mg/dL (9.0-27.0); Calcium 9.4 mg/dL (8.7-10.3); Carbon Dioxide 28.4 mmol/L (21.6-31.8); Chloride 105 mmol/L (96-109); Globulin 2.5 g/dL (1.6-3.3); Glucose 136 mg/dL (70-110); Potassium 4.4 mmol/L (3.5-5.5); Sodium 143 mmol/L (135-145); Total Bilirubin 0.3 mg/dL (0.3-1.2); Total Protein 6.5 g/dL (6.2-8.2)
[2024-04-15 15:40] LABS: INR 0.9 (<1.2); Prothrombin Time 10.6 sec (10.0-12.5)
== END | disposition home or self-care (01) ==
LOC: LABPAT 08:20
PROVIDERS: ATTEND Orthopaedic Surgery
DX: Z01.812 Encounter for preprocedural laboratory examination (principal); Z22.322 Carrier or suspected carrier of Methicillin resistant Staphylococcus aureus; E11.9 Type 2 diabetes mellitus without complications; M17.11 Unilateral primary osteoarthritis, right knee
CPT/HCPCS: 80053; 83036; 85027; 85610; 85730; 87070

== ENCOUNTER → 2024-04-15 | Outpatient (CLI) | payer MEDICARE ==
[2024-04-15 15:40] LABS: NT-Pro-B-Type Natriuretic Pept 132 pg/mL (0-125)
[2024-04-15 16:37] LABS: Chol/HDL Ratio 3.62 Ratio; LDL Cholesterol,Calculated 73.7 mg/dL (0.0-131.0)
== END | disposition home or self-care (01) ==
LOC: LABWHC1 08:24
PROVIDERS: ATTEND Student in an Organized Health Care Education/Training Program
DX: Z13.6 Encounter for screening for cardiovascular disorders (principal); I50.9 Heart failure, unspecified; I42.9 Cardiomyopathy, unspecified; E11.9 Type 2 diabetes mellitus without complications; E78.5 Hyperlipidemia, unspecified; E03.9 Hypothyroidism, unspecified; D72.9 Disorder of white blood cells, unspecified; R79.89 Other specified abnormal findings of blood chemistry
CPT/HCPCS: 36415; 80061; 83880; 84443; 84484; 86141

== ENCOUNTER 2024-04-27 13:08 | Observation (INO) | payer MEDICARE ==
[~2024-04-27 13:08] MED LIST changes: -DEXAMETHASONE SOD PHOSPHATE 4 MG/ML 1 ML VIAL IV ONE; -LACTATED RINGERS 1,000 ML IV SCH; -MIDAZOLAM 2 MG/2 ML VIAL IV PRN; -ONDANSETRON 4 MG/2 ML VIAL IVP ONE
[2024-04-27] MEDS: fentaNYL (PF) 50 MCG/ML 2 ML AMP IVP PRN (14:19)
[2024-04-27] MEDS: MIDAZOLAM 2 MG/2 ML VIAL IV ONE (14:20)
[2024-04-27] MEDS: DEXAMETHASONE SOD PHOSPHATE 4 MG/ML 1 ML VIAL IV ONE (14:24)
[2024-04-27] MEDS: ONDANSETRON 4 MG/2 ML VIAL IVP ONE (14:25)
[2024-04-27] MEDS: IV FLUID CONTINUATION 1,000 ML IV ONE (14:33)
[2024-04-27] MEDS: ACETAMINOPHEN TAB 500 MG TAB PO STA (15:06)
[2024-04-27] MEDS: FAMOTIDINE 20 MG/2 ML VIAL IV STA (15:08)
[2024-04-27] MEDS ORDERED: PHENYLEPHRINE-0.9% NACL SYG 1,000 MCG/10 ML SYRINGE ONE (15:09)
[2024-04-27] MEDS ORDERED: PROPOFOL 10 MG/ML 20 ML VIAL IV ONE (15:09)
[2024-04-27] MEDS ORDERED: ePHEDrine 50 MG/ML 1 ML VIAL ONE (15:09)
[2024-04-27] MEDS ORDERED: DEXAMETHASONE SOD PHOSPHATE 4 MG/ML 1 ML VIAL ONE (15:09)
[2024-04-27] MEDS ORDERED: ROPIVACAINE 5 MG/ML 30 ML VIAL ONE (15:09)
[2024-04-27] MEDS ORDERED: GLYCOPYRROLATE 0.2 MG/ML 2 ML VIAL ONE (15:09)
[2024-04-27] MEDS ORDERED: LIDOCAINE 1% INJ 10MG/ML (20 ML MDV) ONE (15:09)
[2024-04-27] MEDS ORDERED: SODIUM CHLORIDE 0.9% (PF) 10 ML VIAL ONE (15:09)
[2024-04-27] MEDS ORDERED: KETAMINE HCL IN 0.9 % NACL 50 MG/5 ML SYRINGE ONE (15:09)
[2024-04-27] MEDS ORDERED: TRANEXAMIC 1,000 MG/100ML-NACL PREMIX BAG ONE (15:09)
[2024-04-27] MEDS ORDERED: ROCURONIUM 10 MG/ML (5 ML VIAL) IV ONE (15:09)
[2024-04-27] MEDS: KETOROLAC 15 MG/ML 1 ML VIAL IVP STA (15:09)
[2024-04-27] MEDS ORDERED: WATER FOR INJECTION, STERILE 10 ML VIAL IV ONE (15:09)
[2024-04-27] MEDS ORDERED: fentaNYL (PF) 50 MCG/ML 2 ML AMP ONE (15:09)
[2024-04-27] MEDS ORDERED: SUCCINYLCHOLINE CHLORIDE 200 MG/10 ML VIAL IV ONE (15:09)
[2024-04-27] MEDS ORDERED: NEOSTIGMINE 1 MG/ML 10 ML VIAL ONE (15:09)
[2024-04-27] MEDS: ROPIVACAINE/EPI/CLONIDINE/KET 50 ML SYRINGE MISCELLANE PRN (15:40)
--- NOTE | 2024-04-27 15:58 | P.ANPRN ---
Procedure Note - Anesthesia - Nerve Block Performed Right Adductor Canal Single Time Out Performed: Yes (1418) Date of Procedure: 04/27/24 Procedure Start Time: : Procedure Stop Time: 14:24 Location of Patient: PreOp Indication: Acute Post-Operative Pain, Requested by Surgeon Specifically requested for management of pain by DrAvila: Tarik Piña Sedation Type: Sedate with meaningful contact maintained Preparation: Sterile Prep Position: Supine Catheter: None Needle Types: Pajunk Needle Gauge: 21 Ultrasound used to visualize needle placement: Yes Ultrasound used to observe medication spread: Yes Injectate: 0.5% Ropivacaine (see comment for volume) (15CC+NACL PF 10CC+DECADRON 4MG) Blood Aspirated: No Pain Paresthesia on Injection Noted: No Resistance on Injection: Normal Image Stored and Saved: Yes Events: Uneventful and Well Tolerated
--- NOTE | 2024-04-27 15:59 | P.ANPRN ---
Procedure Note - Anesthesia - Nerve Block Performed Right iPack Single Time Out Performed: Yes (1418) Date of Procedure: 04/27/24 Procedure Start Time: Procedure Stop Time: Location of Patient: PreOp Indication: Acute Post-Operative Pain, Requested by Surgeon Specifically requested for management of pain by DrAvila: Tarik Piña Sedation Type: Sedate with meaningful contact maintained Preparation: Sterile Prep Position: Supine Catheter: None Needle Types: Pajunk Needle Gauge: 21 Ultrasound used to visualize needle placement: Yes Ultrasound used to observe medication spread: Yes Injectate: 0.5% Ropivacaine (see comment for volume) (15CC+NACL PF 10CC+DECADRON 4MG) Blood Aspirated: No Pain Paresthesia on Injection Noted: No Resistance on Injection: Normal Image Stored and Saved: Yes Events: Uneventful and Well Tolerated
[2024-04-27] MEDS: LACTATED RINGERS 1,000 ML IV ONE (16:37)
--- NOTE | 2024-04-27 17:02 | P.OP ---
Date of Procedure: 04/27/24 Preoperative Diagnosis: 1. Severe right knee osteoarthritis 2. Heart disease 3. BMI 39.6 Postoperative Diagnosis: Same Procedure(s) Performed: 1. Right total knee arthroplasty 2. Computer assisted musculoskeletal navigation using CT/MRI images Implants: 1. [employer] Triathlon CR Femur Size #4 2. [place] Tri[employer]lon [place] Tibial Base Size #3 3. [place] Triathlon CS poly Size #11 4. [place] Triathlon all poly patella, Size #29 Anesthesia: SAPPHIRE, regional Surgeon: Tarik Piña Lens Polisher #1: Froy Pablo Estimated Blood Loss (ml): 100 IV fluids (ml): 800 Pathology: none sent Condition: stable Indications for Procedure: I met with the patient preoperatively in the office setting and discussed treatment of their symptomatic knee arthritis. They failed a long course of nonsurgical treatment and elected to proceed with an elective total knee replacement. I discussed the potential risks and complications at length and gave them ample time to ask questions. Risks discussed included: risks from anesthesia, superficial site surgical infection, acute and/or chronic periprosthetic joint infection, delayed wound healing, drainage, wound necrosis, instability, stiffness, stiffness requiring manipulation and/or revision surgery, damage to local blood vessels or nerves, aseptic loosening of the implants, extensor mechanism issues including disruption, patellar maltracking, avascular necrosis etc., continued or worsened knee pain, generalized dissatisfaction with surgical outcome, need for revision surgery, an inability to regain preinjury level of function, DVT, PE, other medical complications, and possibly loss of life or limb. The patient voiced their understanding that while these are the most common complications other less common complications are possible. They provided both their verbal and written consent to go forward with surgery. Operative Findings: Severe tricompartmental knee osteoarthritis Description of Procedure: The patient was identified in preoperative holding and the correct operative extremity was verified and marked with a marker. I reviewed the consent form with the patient at length. All of their questions were answered. The patient was given a block by anesthesia. They were then brought back to the operating room. They were transferred onto the operating room table where a general anesthetic, preoperative antibiotics, and tranexamic acid were administered by anesthesia. A tourniquet was applied to the proximal aspect of the operative extremity. The contralateral extremity was padded under the heel and secured to the operating room table with a nonsterile blue towel and tape. The ipsilateral arm was carefully draped across the patient's chest and secured with a pillow and foam. A post was applied over the lateral aspect of the ipsilateral thigh and a bolster was placed under the ipsilateral foot. I verified that the operative extremity was stable and the knee was flexed to 90. The operative extremity was then placed in a leg wilder, nonsterile drapes were applied, and the extremity was prepped and draped sterilely in the standard sterile fashion. Prior to starting surgery timeout was performed identifying the correct patient, operative extremity, and procedure. The leg was then elevated, exsanguinated with an Esmarch bandage, and the tourniquet was inflated. An anterior midline incision was made sharply with a scalpel. Once I had dissected deep to the superficial fascial layer medial and lateral flaps were elevated. A medial parapatellar arthrotomy was created. Upon opening the knee joint there were diffuse arthritic changes in all 3 compartments. The anterior horn of the medial meniscus were sharply released and a medial release was performed around the posterior medial corner of the knee to facilitate retractor placement. The fat pad was excised with electrocautery. The patella was found to be severely arthritic and a provisional cut was made with a sagittal saw to facilitate mobilization of the extensor mechanism during the procedure. Remnants of the ACL and PCL were then excised from the notch. 4 mm pins were then placed within the incision in the medial distal femur and proximal tibia. Arrays were applied to the pins and I verified they were completely tightened. The knee was then registered with the [employer] robot and manipulations in implant po sition were made to balance the knee and opitmize implant position. Using the [employer] robotic saw all cuts were made in accordance with our plan. After all bony fragments had been removed the cuts were verified with the planar probe. The tibia was then subluxed forward and sized. The knee was brought into flexion and a lamina construction contractor was placed to allow removal of the meniscal remnants both medially and laterally as well as posterior osteophytes. Local anesthetic was then infiltrated around the joint capsule. Trial implants were then placed within the knee. Range of motion and collateral ligament tension was then evaluated. Adjustments in implant size and position were then made accordingly. Once the knee was felt to be appropriately balanced the Pedro Luis pins were removed. The patella was then recut, sized, and punched. A trial patellar button was then placed. With the trial components in place, the patella tracked midline. The femur was then drilled and the trial component removed. The trial tibial component was then appropriately rotated, pinned, and prepared for the keel. All trial components were then removed from the knee. The knee was thoroughly irrigated with pulsatile lavage. Cement was prepared via vacuum mixing in a bowl on the back table. I then hand pressurized cement into the femur and tibia and placed the implants beginning with the tibial base tray and poly liner, femoral component, and finally the patellar button. All extruded cement was removed including from the pin sites. Once the cement had hardened the knee was evaluated one final time with the final polyethylene liner in place. The knee had full extension and flexion and felt stable to varus and valgus stress throughout the arc of motion. The tourniquet was released and with the esha rniquet down the patella tracked midline. All bleeders were controlled with electrocautery. The knee was then soaked for 3 minutes with a dilute Betadine soak. The knee was thoroughly irrigated using 3 L of sterile saline and pulsatile lavage. A deep drain was placed. The extensor mechanism was then reapproximated using pop off Vicryl sutures followed by a running barbed suture. The knee was then closed in layers with a 0 strata fix for the deep fascial layer, 2-0 strata fix for the superficial subcutaneous layer and Monocryl and Steri-Strips for the skin. A sterile dressing and drain sponge were applied. I verified that all instrument, sponge, and sharp counts were correct. The patient was then transferred off the operating room table, extubated, and brought to recovery having tolerated the procedure well. Froy Pablo PA-C was required as a skilled podiatric assistant due to the complexity of surgery for patient positioning, draping, exposure, retraction, closure of wound and application of dressing. PLAN: The patient can weight-bear as tolerated on the operative extremity. DVT prophylaxis with aspirin 81 mg twice a day based on preoperative risk stratification. Follow-up in the office in 2 weeks for wound check and x-rays of the knee including an AP and lateral.
[2024-04-27] MEDS ORDERED: HYDROmorphone 0.5 MG/0.5 ML SYRINGE IVP PRN ×2 (17:19)
[2024-04-27] MEDS ORDERED: NALOXONE 0.4 MG/ML 1 ML VIAL IV PRN (17:19)
[2024-04-27] MEDS ORDERED: ACETAMINOPHEN TAB 325 MG TAB PO PRN (17:19)
[2024-04-27] MEDS ORDERED: ONDANSETRON 4 MG/2 ML VIAL IVP PRN (17:19)
--- NOTE | 2024-04-27 18:13 | XR ---
EXAMINATION TYPE: XR knee limited RT DATE OF EXAM: 04/27/2024 6:00 PM COMPARISON: CT right knee 03/11/2024 CLINICAL INDICATION: Female, 73 years old with history of Evaluation for Postop abnormality and align ment; PHH, pain TECHNIQUE: XR knee limited RT views submitted.. FINDINGS: Interval placement of right knee arthroplasty with appropriate positioning of femoral and t ibial components. No periprosthetic loosening or acute fracture. Expected soft tissue gas and edema s urrounding the right knee. IMPRESSION: Appropriate positioning of right knee arthroplasty as above. [facility], , 04/27/2024 6:11 PM
[2024-04-27 20:49] LABS: Basophils % (A) 0 %; Eosinophils % (A) 0 %; HCT 41.6 % (34.0-46.0); HGB 13.2 gm/dL (11.4-16.0); Lymphocytes # (A) 0.9 k/uL (1.0-4.8); Lymphocytes % (A) 11 %; MCH 30.3 pg (25.0-35.0); MCHC 31.8 g/dL (31.0-37.0); MCV 95.3 fL (80.0-100.0); Mean Platelet Volume 9.4; Monocytes # (A) 0.1 k/uL (0-1.0); Monocytes % (A) 1 %; Neutrophils # (A) 7.4 k/uL (1.3-7.7); Neutrophils % (A) 88 %; Platelet Count 224 k/uL (150-450); RBC 4.37 m/uL (3.80-5.40); RDW 13.2 % (11.5-15.5); WBC 8.5 k/uL (3.8-10.6)
[2024-04-27 21:02] LABS: ALT 32 U/L (4-34); AST 44 U/L (14-36); African American GFR (CKD) >90 (>60 ml/min/1.73 sqM); Albumin 3.6 g/dL (3.5-5.0); Albumin/Globulin Ratio 1.3; Alkaline Phosphatase 52 U/L (38-126); Anion Gap 8 mmol/L; Blood Urea Nitrogen 10 mg/dL (7-17); Calcium 9.1 mg/dL (8.4-10.2); Carbon Dioxide 27 mmol/L (22-30); Chloride 101 mmol/L (98-107); Globulin 2.8 g/dL; Glucose 227 mg/dL (74-99); Magnesium 1.8 mg/dL (1.6-2.3); Non-African American GFR(CKD) 88 (>60 ml/min/1.73 sqM); Potassium 4.2 mmol/L (3.5-5.1); Sodium 136 mmol/L (137-145); Total Bilirubin 0.5 mg/dL (0.2-1.3); Total Protein 6.4 g/dL (6.3-8.2)
--- NOTE | 2024-04-27 21:29 | P.CONS ---
History of Present Illness - Reason for Consult Consult date: 04/27/24 - History of Present Illness Patient is a 73-year-old female with hypertension, hyperlipidemia, GERD is here status post scheduled right total knee arthroplasty postop day 0. Patient denies voiding or bowel movement. Reports of mild pain. Pertinent positives and negatives as discussed above, a complete review of systems was performed and all other systems are negative. Vitals: Signs Reviewed Physical Exam: General: nontoxic, no distress, appears at stated age Derm: warm, dry, intact Head: atraumatic, normocephalic, symmetric Eyes: EOMI, anicteric sclera Mouth: no lip lesion, mucus membranes moist Cardiovascular: S1 S2 reg, no murmur, rubs, or gallops Lungs: CTA bilateral, no rhonchi, no rales, no accessory muscle use Abdominal: soft, non-tender to palpataion, no appreciable organomegaly Extremities: no gross muscle atrophy, no edema, no contractures, surgical dressing placed over right knee that is clean and intact, wrapped with nel bandage Neuro: Alert, Oriented, CNII-XII grossly intact, gait normal Psych: well appearing, appropriate affect Data Received Today: Pertinent Labs: WBC 8.5, Hgb 13.2, Na 136, Glucose 227 Assessment and Plan: #. Hypertension #. Hyperlipidemia Hold antihypertensives due to borderline low BP Continue rosuvastatin 20 mg p.o. at bedtime #. Right total knee arthroplasty PT/OT DVT prophylaxis, antibiotics, pain management being managed by primary orthopedic team. Code status: Full code Telma Dinh MD PGY-1 IM Dictation was produced using [employer] dictation software. please excuse any grammatical, word or spelling errors. Past Medical History Past Medical History: Cancer, GERD/Reflux, Hyperlipidemia, Hypertension, Osteoarthritis (OA) Additional Past Medical History / Comment(s): hx skin cancer History of Any Multi-Drug Resistant Organisms: None Reported Past Surgical History: Adenoidectomy, Bladder Surgery, Cholecystectomy, Hernia Repair, Hysterectomy, Orthopedic Surgery, Tonsillectomy Additional Past Surgical History / Comment(s): bilateral bunionectomy, esophageal dilitation, skin cancer removed on face, brenda inguinal hernia, rotator cuff rt shoulder, arthroscopy brenda knee, colonoscopy, cystocele and rectocele with hysterectomy, right ankle fusion Past Anesthesia/Blood Transfusion Reactions: No Reported Reaction Smoking Status: Former smoker - Past Family History Mother Family Medical History: Cancer Additional Family Medical History / Comment(s): rectal cancer Sister(s) Family Medical History: Cancer Additional Family Medical History / Comment(s): breast cancer Father Family Medical History: Hypertension Additional Family Medical History / Comment(s): Parkinsons Medications and Allergies Home Medications Medication Instructions Recorded Confirmed Type Omeprazole [PriLOSEC] 20 mg PO DAILY 12/17/17 04/27/24 History PARoxetine HCL [Paxil] 20 mg PO DAILY 08/19/19 04/27/24 History Docusate [Colace] 100 mg PO DAILY 11/28/20 04/27/24 History Rosuvastatin [Crestor] 20 mg PO HS 11/28/20 04/27/24 History Spironolactone [Aldactone] 25 mg PO DAILY 11/28/20 04/27/24 History amLODIPine [Norvasc] 10 mg PO DAILY 11/28/20 04/27/24 History nadoloL [Corgard] 20 mg PO QAM 11/28/20 04/27/24 History Doxepin [SINEquan] 10 mg PO HS 04/22/24 04/27/24 History Allergies Allergy/AdvReac Type Severity Reaction Status Date / Time lisinopril Allergy mouth and Verified 04/27/24 13:39 tongue swelling Penicillins Allergy Rash/Hives Verified 04/27/24 13:39 Sulfa (Sulfonamide Allergy Rash/Hives Verified 04/27/24 13:39 Antibiotics) Physical Exam Vitals: Vital Signs Temp Pulse Resp BP Pulse Ox 04/27/24 18:05 60 16 100/61 94 L 04/27/24 17:50 60 16 105/67 95 04/27/24 17:35 70 16 83/43 92 L 04/27/24 17:20 97 F L 71 12 117/61 94 L 04/27/24 14:29 59 L 16 121/57 94 L 04/27/24 13:48 97.3 F L 66 18 139/74 94 L Intake and Output 04/27/24 04/27/24 04/27/24 06:59 14:59 22:59 Intake Total 100 1500 Output Total 100 Balance 100 1400 Intake: IV 100 1500 Output: Estimated Blood Loss 100 Other: Weight 104.6 kg Results CBC & Chem 7: 04/27/24 20:33 04/27/24 20:33
[2024-04-27] MEDS: ASPIRIN 81 MG PO SCH (22:29)
[2024-04-27] MEDS: SENNOSIDES-DOCUSATE SODIUM 1 EACH TAB PO SCH (22:30)
[2024-04-28] MEDS: hydrOXYzine pamoate 25 MG CAP PO PRN (00:29)
[2024-04-28] MEDS: HYDROcodone/APAP 5-325MG 1 EACH TAB PO PRN (04:21)
[2024-04-28] MEDS: LACTATED RINGERS 1,000 ML IV SCH (04:37)
[2024-04-28] MEDS: SODIUM CHLORIDE 0.9% 1,000 ML IV SCH (04:38)
[2024-04-28 07:27] LABS: African American GFR (CKD) >90 (>60 ml/min/1.73 sqM); Anion Gap 7 mmol/L; Blood Urea Nitrogen 9 mg/dL (7-17); Carbon Dioxide 27 mmol/L (22-30); Chloride 102 mmol/L (98-107); Glucose 227 mg/dL (74-99); Non-African American GFR(CKD) 90 (>60 ml/min/1.73 sqM); Potassium 4.4 mmol/L (3.5-5.1); Sodium 136 mmol/L (137-145)
--- NOTE | 2024-04-28 08:14 | P.PN ---
Subjective Progress Note Date: 04/28/24 No acute events overnight. Patient is doing well this morning. The pain in their knee is mild and likely still under effects from the nerve block. They have walked to the bathroom with a walker and assistance. They deny chest pain or shortness of breath. Objective - Vital Signs Vital signs: Vital Signs Temp 97.5 F L 04/28/24 01:17 Pulse 62 04/28/24 01:17 Resp 17 04/28/24 01:17 BP 109/70 04/28/24 01:17 Pulse Ox 91 L 04/28/24 07:50 FiO2 Intake & Output 04/27/24 04/28/24 04/28/24 18:59 06:59 18:59 Intake Total 1600 3240 Output Total 100 Balance 1500 3240 Weight 104.6 kg 104.6 kg Intake: IV 1600 Oral 3240 Output: Estimated Blood Loss 100 Other: Voiding Method Toilet # Voids 6 - Exam Patient was examined at bedside. Patient was on 3 L oxygen nasal cannula during exam. Patient is resting comfortably in bed. No apparent distress. They are awake, alert and able to answer questions. Inspection: The surgical dressing is intact, there is no drainage or strikethrough. The skin surrounding the dressing is free of erythema. There is mild swelling in the operative thigh. Palpation: The operative calf is soft to compression. No calf tenderness. Neurovascular: Operative femoral nerve function is intact. The patient is able to actively plantarflex and dorsiflex their operative ankle and toes. Operative extremity sensation is intact to light touch throughout. Their operative foot appears well perfused, palpable dorsalis pedis pulse, and capillary refill under 2 seconds. - Labs CBC & Chem 7: 04/27/24 20:33 04/28/24 06:57 Labs: Abnormal Lab Results - Last 24 Hours (Table) 04/27/24 04/27/24 04/28/24 Range/Units 20:33 20:33 06:57 Lymphocytes # 0.9 L (1.0-4.8) k/uL Sodium 136 L 136 L (137-145) mmol/L Glucose 227 H 227 H (74-99) mg/dL AST 44 H (14-36) U/L Assessment and Plan Assessment: Postop day #1 status post right total knee arthroplasty for severe right knee osteoarthritis Right knee pain Multiple medical problems Plan: Weight-bear as tolerated on the operative extremity. Use a walker to ambulate. Leave surgical dressing in place. Physical therapy for gait training and mobilization. We appreciate internal medicine for perioperative medical management. Disposition: Will work with physical therapy, anticipate needing rehab.
[2024-04-28 08:30] LABS: Basophils # (A) 0.01 X 10*3/uL (0.00-0.10); Basophils % (A) 0.1 %; Eosinophils # (A) 0 X 10*3/uL (0.04-0.35); Eosinophils % (A) 0 %; HCT 40.2 % (37.2-46.3); HGB 12.7 g/dL (12.0-15.0); Lymphocytes # (A) 0.73 X 10*3/uL (0.90-5.00); Lymphocytes % (A) 6.8 %; MCH 29.8 pg (27.0-32.0); MCHC 31.6 g/dL (32.0-37.0); MCV 94.4 FL (80.0-97.0); Mean Platelet Volume 12.1 FL (9.5-12.2); Monocytes # (A) 0.21 X 10*3/uL (0.20-1.00); NRBC Per 100 WBC 0 X 10*3/uL (0.00-0.01); Neutrophils # (A) 9.73 X 10*3/uL (1.80-7.70); Neutrophils % (A) 90.8 %; Platelet Count 251 X 10*3/uL (140-440); RBC 4.26 X 10*6/uL (4.10-5.20); RDW 12.5 % (11.5-14.5); WBC 10.71 X 10*3/uL (4.50-10.00)
[2024-04-28] MEDS ORDERED: FAMOTIDINE 20 MG TAB PO SCH (09:00)
[2024-04-28] MEDS: PARoxetine 20 MG TAB PO SCH (09:14)
[2024-04-28] MEDS: PANTOPRAZOLE 40 MG TABLET PO SCH (09:14)
[2024-04-28] MEDS: HYDROcodone/APAP 10-325MG 1 EACH TAB PO PRN (09:23)
[2024-04-28] MEDS: HYDROmorphone 0.5 MG/0.5 ML SYRINGE IVP PRN (11:12)
--- NOTE | 2024-04-28 14:00 | P.PN ---
Subjective Progress Note Date: 04/28/24 Patient is a 73-year-old female with hypertension, hyperlipidemia, GERD is here status post scheduled right total knee arthroplasty postop day 0. Patient denies voiding or bowel movement. Reports of mild pain. 04/28/2024 patient seen and examined at bedside. No acute events overnight. Has been able to void but has not had flatus or bowel movement. Has been able to ambulate. Reports pain controlled with medication Labs: WBC 10.71, hemoglobin 12.7, platelet count 251,000, sodium 136, creatinine 0.64, glucose 227 Pertinent positives and negatives as discussed above, a complete review of systems was performed and all other systems are negative. Vitals: Signs Reviewed Physical Exam: General: nontoxic, no distress, appears at stated age Derm: warm, dry, intact Head: atraumatic, normocephalic, symmetric Eyes: EOMI, anicteric sclera Mouth: no lip lesion, mucus membranes moist Cardiovascular: S1 S2 reg, no murmur, rubs, or gallops Lungs: CTA bilateral, no rhonchi, no rales, no accessory muscle use Abdominal: soft, non-tender to palpataion, no appreciable organomegaly Extremities: no gross muscle atrophy, no edema, no contractures, surgical dressing placed over right knee that is clean and intact, wrapped with nel bandage Neuro: Alert, Oriented, CNII-XII grossly intact, gait normal Psych: well appearing, appropriate affect Assessment and Plan: #. Leukocytosis likely reactive -Patient asymptomatic and afebrile -Monitor CBC #. Hypertension #. Hyperlipidemia #. GERD Hold antihypertensives due to borderline low BP Continue atorvastatin 40, oral Protonix 40 and paroxetine 20 oral #. Right total knee arthroplasty PT/OT DVT prophylaxis, antibiotics, pain management being managed by primary orthopedic team. Code status: Full code Patient is medically optimized for discharge. I have seen and evaluated the patient today. Discussed with the resident and agree with the residents finding and plan as documented in the resident's note. Changes highlighted in blue font. Thank you for allowing us to participate in the care of this pleasant patient. Do not hesitate to contact us with questions. Someone can be reached from the [facility] hospitalist group all hours of the day at [phone] or via perfect serve. Objective - Vital Signs Vital signs: Vital Signs Temp 98.1 F 04/28/24 07:36 Pulse 86 04/28/24 07:36 Resp 18 04/28/24 07:36 BP 104/62 04/28/24 07:36 Pulse Ox 91 L 04/28/24 07:50 FiO2 Intake & Output 04/27/24 04/28/24 04/28/24 18:59 06:59 18:59 Intake Total 1600 3240 Output Total 100 Balance 1500 3240 Weight 104.6 kg 104.6 kg Intake: IV 1600 Oral 3240 Output: Estimated Blood Loss 100 Other: Voiding Method Toilet # Voids 6 - Labs CBC & Chem 7: 04/28/24 05:31 04/28/24 06:57 Labs: Abnormal Lab Results - Last 24 Hours (Table) 04/27/24 04/27/24 04/28/24 Range/Units 20:33 20:33 05:31 WBC 10.71 H (4.50-10.00) X 10*3/uL MCHC 31.6 L (32.0-37.0) g/dL Neutrophils # 9.73 H (1.80-7.70) X 10*3/uL Lymphocytes # 0.9 L 0.73 L (1.0-4.8) k/uL Eosinophils # 0 L (0.04-0.35) X 10*3/uL Sodium 136 L (137-145) mmol/L Glucose 227 H (74-99) mg/dL AST 44 H (14-36) U/L 04/28/24 Range/Units 06:57 WBC (4.50-10.00) X 10*3/uL MCHC (32.0-37.0) g/dL Neutrophils # (1.80-7.70) X 10*3/uL Lymphocytes # (1.0-4.8) k/uL Eosinophils # (0.04-0.35) X 10*3/uL Sodium 136 L (137-145) mmol/L Glucose 227 H (74-99) mg/dL AST (14-36) U/L
[2024-04-28] MEDS: ATORVASTATIN 40 MG TAB PO SCH (21:04)
[2024-04-28] MEDS: HYDROmorphone 1 MG/ML 1 ML SYRINGE IVP PRN (21:04)
[2024-04-28] MEDS: DOXEPIN 10 MG CAP PO SCH (22:45)
--- NOTE | 2024-04-29 09:21 | P.PN ---
Subjective Patient is much more painful this morning. According to nursing she struggled with physical therapy and has required Dilaudid. She has also been hypoxic. This morning she is complaining of pain in both of her knees. She denies chest pain or shortness of breath. Objective - Vital Signs Vital signs: Vital Signs Temp 98.1 F 04/29/24 00:17 Pulse 79 04/29/24 00:17 Resp 16 04/29/24 00:17 BP 141/74 04/29/24 00:17 Pulse Ox 90 L 04/29/24 00:17 FiO2 Intake & Output 04/28/24 04/29/24 04/29/24 18:59 06:59 18:59 Other: Voiding Method Toilet # Voids 3 2 - Exam Patient is sitting up in a chair. She is somewhat drowsy but is alert and able to answer questions. The dressing over her right knee is intact with no drainage or strikethrough. She is able to perform a straight leg raise. Distally she can plantarflex and dorsiflex her ankle and her toes. - Labs CBC & Chem 7: 04/28/24 05:31 04/28/24 06:57 Assessment and Plan Assessment: Postop day 2 status post total knee replacement Plan: Continue treatment as outlined yesterday. We will plan on keeping the patient another 24 to 48 hours. She will be reassessed by physical therapy tomorrow to determine home with family versus retirement facility or rehab. Appreciate internal medicine's assistance with perioperative medical management
--- NOTE | 2024-04-29 11:28 | P.PN ---
Subjective Progress Note Date: 04/29/24 Patient is a 73-year-old female with hypertension, hyperlipidemia, GERD is here status post scheduled right total knee arthroplasty postop day 0. Patient denies voiding or bowel movement. Reports of mild pain. 04/28/2024 patient seen and examined at bedside. No acute events overnight. Has been able to void but has not had flatus or bowel movement. Has been able to ambulate. Reports pain controlled with medication Labs: WBC 10.71, hemoglobin 12.7, platelet count 251,000, sodium 136, creatinine 0.64, glucose 227 04/29/2024 patient seen and examined at bedside. No acute events overnight. No new complaints. Requiring 2 L nasal cannula for O2 support overnight. Pertinent positives and negatives as discussed above, a complete review of systems was performed and all other systems are negative. Vitals: Signs Reviewed Physical Exam: General: nontoxic, no distress, appears at stated age Derm: warm, dry, intact Head: atraumatic, normocephalic, symmetric Eyes: EOMI, anicteric sclera Mouth: no lip lesion, mucus membranes moist Cardiovascular: S1 S2 reg, no murmur, rubs, or gallops Lungs: CTA bilateral, no rhonchi, no rales, no accessory muscle use Abdominal: soft, non-tender to palpataion, no appreciable organomegaly Extremities: no gross muscle atrophy, no edema, no contractures, surgical dressing placed over right knee that is clean and intact, wrapped with nel bandage Neuro: Alert, Oriented, CNII-XII grossly intact, gait normal Psych: well appearing, appropriate affect Assessment and Plan: #. Hypoxia -Required O2 support overnight -Patient asymptomatic at this time -Chest x-ray -Supplemental O2 as needed -Continue incentive spirometry #. Leukocytosis likely reactive -Patient asymptomatic and afebrile -Monitor CBC #. Hypertension #. Hyperlipidemia #. GERD Hold antihypertensives due to borderline low BP Continue rosuvastatin, oral Protonix and paroxetine oral Patient is medically optimized for discharge. #. Right total knee arthroplasty PT/OT DVT prophylaxis, antibiotics, pain management being managed by primary orthop edic team. Code status: Full code I have seen and evaluated the patient today. Discussed with the resident and agree with the residents finding and plan as documented in the resident's note. Changes highlighted in blue font. Objective - Vital Signs Vital signs: Vital Signs Temp 98.1 F 04/29/24 00:17 Pulse 79 04/29/24 00:17 Resp 16 04/29/24 00:17 BP 141/74 04/29/24 00:17 Pulse Ox 90 L 04/29/24 00:17 FiO2 Intake & Output 04/28/24 04/29/24 04/29/24 18:59 06:59 18:59 Other: Voiding Method Toilet # Voids 3 2 - Labs CBC & Chem 7: 04/28/24 05:31 04/28/24 06:57 Labs: Abnormal Lab Results - Last 24 Hours (Table) 04/28/24 04/28/24 Range/Units 05:31 06:57 WBC 10.71 H (4.50-10.00) X 10*3/uL MCHC 31.6 L (32.0-37.0) g/dL Neutrophils # 9.73 H (1.80-7.70) X 10*3/uL Lymphocytes # 0.73 L (0.90-5.00) X 10*3/uL Eosinophils # 0 L (0.04-0.35) X 10*3/uL Sodium 136 L (137-145) mmol/L Glucose 227 H (74-99) mg/dL
--- NOTE | 2024-04-29 11:39 | XR ---
EXAMINATION TYPE: XR chest 1V portable DATE OF EXAM: 04/29/2024 11:18 AM COMPARISON: None CLINICAL INDICATION: Female, 73 years old with history of hypoxia; TECHNIQUE: XR chest 1V portable Frontal view of the chest. FINDINGS: Lungs/Pleura: Low lung volumes are present. There is no evidence of pleural effusion, focal consolida tion, or pneumothorax. Pulmonary vascularity: Unremarkable. Heart/mediastinum: Cardiomediastinal silhouette is unremarkable. Musculoskeletal: No acute osseous pathology. IMPRESSION: Low lung volumes with a generalized hazy appearance which could represent atelectasis versus pulmonar y edema correlate with serum BNP. [facility], , 04/29/2024 11:37 AM
[2024-04-30] MEDS: CALCIUM CARBONATE 500 MG CHEWABLE PO PRN (01:07)
--- NOTE | 2024-04-30 09:42 | P.PN ---
Subjective Progress Note Date: 04/30/24 Patient is doing slightly better in regards to her right knee but is still painful. She denies shortness of breath. She states that an internal medicine physician told her this morning she had "crackling" in her lungs. She has been using her incentive spirometer. Objective - Vital Signs Vital signs: Vital Signs Temp 98.4 F 04/30/24 03:23 Pulse 97 04/30/24 03:23 Resp 16 04/30/24 03:23 BP 114/78 04/30/24 03:23 Pulse Ox 90 L 04/30/24 03:23 FiO2 Intake & Output 04/29/24 04/30/24 04/30/24 18:59 06:59 18:59 Intake Total 2190 Balance 2190 Intake: Oral 2190 Other: Voiding Method Toilet # Voids 3 6 - Exam Patient is sitting up at bedside in the chair. She is alert and able to answer questions. A focused exam of the right lower extremity was conducted. The dressing over her knee is intact. There is no drainage or strikethrough. Thigh and calf are soft and moderately swollen. Motor and sensory function are intact in the ankle and toes. - Labs CBC & Chem 7: 04/28/24 05:31 04/28/24 06:57 Assessment and Plan Assessment: Post-Operative day #3 status post right total knee replacement Plan: Continue treatment as outlined yesterday. The patient continues to slowly improve in regards to her pain. We will plan on discharge to rehab when she is medically stable. She is okay to discharge from an orthopedic standpoint.
[2024-04-30 09:55] LABS: Basophils # (A) 0.04 X 10*3/uL (0.00-0.10); Basophils % (A) 0.5 %; Eosinophils # (A) 0.45 X 10*3/uL (0.04-0.35); Eosinophils % (A) 5.1 %; HCT 35.7 % (37.2-46.3); HGB 11.3 g/dL (12.0-15.0); Lymphocytes # (A) 1.17 X 10*3/uL (0.90-5.00); Lymphocytes % (A) 13.3 %; MCH 30.5 pg (27.0-32.0); MCHC 31.7 g/dL (32.0-37.0); MCV 96.2 FL (80.0-97.0); Monocytes % (A) 6.8 %; NRBC Per 100 WBC 0 X 10*3/uL (0.00-0.01); Neutrophils # (A) 6.52 X 10*3/uL (1.80-7.70); Neutrophils % (A) 73.8 %; Platelet Count 198 X 10*3/uL (140-440); RBC 3.71 X 10*6/uL (4.10-5.20); RDW 13.1 % (11.5-14.5); WBC 8.82 X 10*3/uL (4.50-10.00)
[2024-04-30 10:55] VITALS: BP 145/80; PULSE 107; RESP 18; TEMP 98.2
--- NOTE | 2024-04-30 11:57 | P.PN ---
Subjective Progress Note Date: 04/30/24 Patient is a 73-year-old female with hypertension, hyperlipidemia, GERD is here status post scheduled right total knee arthroplasty postop day 0. Patient denies voiding or bowel movement. Reports of mild pain. 04/28/2024 patient seen and examined at bedside. No acute events overnight. Has been able to void but has not had flatus or bowel movement. Has been able to ambulate. Reports pain controlled with medication Labs: WBC 10.71, hemoglobin 12.7, platelet count 251,000, sodium 136, creatinine 0.64, glucose 227 04/29/2024 patient seen and examined at bedside. No acute events overnight. No new complaints. Requiring 2 L nasal cannula for O2 support overnight. 04/30/2024 patient seen and examined at bedside. No acute events overnight. No new complaints. Required 3 L of nasal cannula O2 overnight. Labs: WBC 8.82, hemoglobin 11.3, platelet count 1 98,000 Pertinent positives and negatives as discussed above, a complete review of systems was performed and all other systems are negative. Vitals: Signs Reviewed Physical Exam: General: nontoxic, no distress, appears at stated age Derm: warm, dry, intact Head: atraumatic, normocephalic, symmetric Eyes: EOMI, anicteric sclera Mouth: no lip lesion, mucus membranes moist Cardiovascular: S1 S2 reg, no murmur, rubs, or gallops Lungs: CTA bilateral, no rhonchi, no rales, no accessory muscle use Abdominal: soft, non-tender to palpataion, no appreciable organomegaly Extremities: no gross muscle atrophy, no edema, no contractures, surgical dressing placed over right knee that is clean and intact, wrapped with nel bandage Neuro: Alert, Oriented, CNII-XII grossly intact, gait normal Psych: well appearing, appropriate affect Assessment and Plan: #. Hypoxia -Required O2 support overnight -Patient has no shortness of breath, productive cough, extremity swelling or ling st pain -Chest x-ray independently interpreted showed hiatal hernia with some atelectasis/congestion. -Supplemental O2 as needed -Continue incentive spirometry #. Leukocytosis likely reactive, resolved -Patient asymptomatic and afebrile -Monitor CBC #. Hypertension #. Hyperlipidemia #. GERD Hold antihypertensives due to borderline low BP Continue rosuvastatin, oral Protonix and paroxetine oral Patient is medically optimized for discharge. #. Right total knee arthroplasty PT/OT DVT prophylaxis, antibiotics, pain management being managed by primary orthopedic team. Code status: Full code I saw and evaluated the patient during the steven and critical portions of this encounter, and discussed the case in detail with the resident author of this note, I agree with the Assessment and Plan, and my changes, if any, are highlighted in blue. Objective - Vital Signs Vital signs: Vital Signs Temp 98.4 F 04/30/24 03:23 Pulse 97 04/30/24 03:23 Resp 16 04/30/24 03:23 BP 114/78 04/30/24 03:23 Pulse Ox 90 L 04/30/24 03:23 FiO2 Intake & Output 04/29/24 04/30/24 04/30/24 18:59 06:59 18:59 Intake Total 2190 Balance 2190 Intake: Oral 2190 Other: Voiding Method Toilet # Voids 3 6 - Labs CBC & Chem 7: 04/30/24 02:55 04/28/24 06:57
--- NOTE | 2024-04-30 12:09 | P.DS ---
Providers Date of admission: 04/27/24 13:09 Attending physician: Tarik Piña Consults: 04/27/24 17:19 Consult Physician Routine Consulting Provider: Souleymane Hilario Consult Reason/Comments: Postop medical management Do you want consulting provider notified?: Yes Primary care physician: Wilbert Lin MD Hospital Course: The patient was admitted this past Thursday and underwent a total knee rep lacement. Following an uncomplicated surgery she was transferred to the ORTHO floor. She got 2 doses of post op antibiotics. She was started on ASA 81 mg BID for DVT prophylaxis. SHe was seen by IM. SHe had some issues with pain and hypoxia which resolved. She worked with PT. She was cleared for d/c on POD#3 Patient Condition at Discharge: Good Plan - Discharge Summary Discharge Rx Participant: Yes New Discharge Prescriptions: New Aspirin 81 mg PO BID #60 tab HYDROcodone/APAP 5-325MG [Satin 5] 1 - 2 each PO Q6HR PRN #56 tab PRN Reason: Pain Docusate [Colace] 100 mg PO BID #60 capsule Ondansetron [Zofran] 4 mg PO Q8HR PRN #20 tab PRN Reason: Nausea Celecoxib [CeleBREX] 200 mg PO BID #60 cap Continue Omeprazole [PriLOSEC] 20 mg PO DAILY PARoxetine HCL [Paxil] 20 mg PO DAILY Docusate [Colace] 100 mg PO DAILY amLODIPine [Norvasc] 10 mg PO DAILY Spironolactone [Aldactone] 25 mg PO DAILY Doxepin [SINEquan] 10 mg PO HS Rosuvastatin [Crestor] 20 mg PO HS nadoloL [Corgard] 20 mg PO QAM Discharge Medication List Omeprazole [PriLOSEC] 20 mg PO DAILY 12/17/17 [History] PARoxetine HCL [Paxil] 20 mg PO DAILY 08/19/19 [History] Docusate [Colace] 100 mg PO DAILY 11/28/20 [History] Rosuvastatin [Crestor] 20 mg PO HS 11/28/20 [History] Spironolactone [Aldactone] 25 mg PO DAILY 11/28/20 [History] amLODIPine [Norvasc] 10 mg PO DAILY 11/28/20 [History] nadoloL [Corgard] 20 mg PO QAM 11/28/20 [History] Doxepin [SINEquan] 10 mg PO HS 04/22/24 [History] Aspirin 81 mg PO BID #60 tab 04/28/24 [Rx] HYDROcodone/APAP 5-325MG [Satin 5] 1 - 2 each PO Q6HR PRN #56 tab 04/28/24 [Rx] Celecoxib [CeleBREX] 200 mg PO BID #60 cap 04/30/24 [Rx] Docusate [Colace] 100 mg PO BID #60 capsule 04/30/24 [Rx] Ondansetron [Zofran] 4 mg PO Q8HR PRN #20 tab 04/30/24 [Rx] Follow up Appointment(s)/Referral(s): [facility], [NON-STAFF] - 1-2 Days ([facility] will call you to schedule your in home nursing and physical therapy visits. ) Tarik Piña MD [Medical Doctor] - 05/09/24 1:20 pm (With Froy) Activity/Diet/Wound Care/Special Instructions: 1. Weight-bear as tolerated on your operative extremity unless instructed otherwise. Use a walker or other assistive device to ambulate. 2. Leave surgical dressing in place. If your dressing becomes saturated with blood, there is drainage, or the dressing becomes loose please contact the office. 3. It is okay to shower with your surgical dressing, but do not submerge in water (no hot tubs, bath's, swimming etc.) 4. Take your blood clot prevention medication as prescribed (aspirin, Eliquis, Xarelto, and Plavix are commonly prescribed medications for blood clot prevention) 5. While taking Satin or Percocet for pain take a stool softener (Ex: Colace) and drink lots of water. 6. Keep all follow-up appointments as scheduled. You will usually be seen in 1-2 weeks following surgery. 7. Please contact the office with any questions or concerns [phone] Please check your BP prior to taking your BP meds. If lightheaded or BP<90/60, do not take your meds. Call your PCP or seek further medical assistance. Discharge Disposition: TRANSFER TO SNF/ECF
== END 2024-04-30 15:26 ==
LOC: OR 13:08 → 4SSUR 13:09
PROVIDERS: ADMIT Orthopaedic Surgery; ATTEND Orthopaedic Surgery
DX: M17.11 Unilateral primary osteoarthritis, right knee (principal); I95.9 Hypotension, unspecified; J98.11 Atelectasis; D72.829 Elevated white blood cell count, unspecified; R09.02 Hypoxemia; M25.562 Pain in left knee; I10 Essential (primary) hypertension; E78.5 Hyperlipidemia, unspecified; I25.9 Chronic ischemic heart disease, unspecified; K21.9 Gastro-esophageal reflux disease without esophagitis; E66.9 Obesity, unspecified; Z68.39 Body mass index [BMI] 39.0-39.9, adult; K44.9 Diaphragmatic hernia without obstruction or gangrene; F41.9 Anxiety disorder, unspecified; Z79.899 Other long term (current) drug therapy; Z88.0 Allergy status to penicillin; Z88.2 Allergy status to sulfonamides; Z88.8 Allergy status to other drugs, medicaments and biological substances; Z85.828 Personal history of other malignant neoplasm of skin; Z87.891 Personal history of nicotine dependence
CPT/HCPCS: 0055T; 27447; 64447; 64473; 64999; 71045; 80048; 80053; 83735; 83880; 85025; 94760

== ENCOUNTER → 2024-08-08 | Outpatient (CLI) | payer MEDICARE ==
--- NOTE | 2024-08-08 14:40 | CT ---
INDICATION: Patient age:Female; 73 years old; Reason for study: [facility] Protocol for left knee replacement, M25.562 PAIN IN L KNEE M17.12 OA LEFT KNEE ; [facility]. COMPARISON: CT right knee 03/11/2024 TECHNIQUE: Thin section axial CT imaging of the entire left lower extremity was performed per [facility] protocol, wit hout the administration of IV contrast. Additional axial images of the bilateral hips and ankles with other knee were also obtained. Reformatted images in coronal and sagittal views obtained. FINDINGS: There is no evidence of acute fracture or dislocation. Diffuse bone demineralization. Remote injury t o the bilateral ischial tuberosities. Pelvic floor relaxation. Status post hysterectomy changes. Mild degenerative changes of both hips. No significant hip joint effusion. Mild degenerative changes of bilateral SI joints. Degenerative changes of visualized lumbosacral spine at L5-S1. Sigmoid divert iculosis without evidence for acute diverticulitis. Moderate osteoarthritic changes of the right knee with joint space narrowing and marginal osteophytos is. No acute fracture or dislocation. Patella carlos alberto. Small joint effusion. Small Gibbs's cyst measurin g up to 2.3 cm. Partial visualization of postsurgical changes from a right knee arthroplasty. Previous tibiotalar surgical arthrodesis with anterior plate fixation screw on the right. Mature bony ankylosis is again present. Mild to moderate degenerative changes along the posterior subtalar joint . Small plantar heel spur. Small posterior plantar calcaneal enthesophytes on the left. IMPRESSION: 1. [facility] protocol for left knee joint replacement. 2. Moderate osteoarthritic change of the left knee. Moderate left knee joint effusion. Small left kn ee Gibbs's cyst. [facility], , 08/08/2024 2:38 PM
== END | disposition home or self-care (01) ==
LOC: RADCTMAIN 13:23
PROVIDERS: ATTEND Orthopaedic Surgery
DX: M17.12 Unilateral primary osteoarthritis, left knee (principal); M71.22 Synovial cyst of popliteal space [Baker], left knee; M25.462 Effusion, left knee; Z96.652 Presence of left artificial knee joint

== ENCOUNTER → 2024-08-10 | Outpatient (CLI) | payer MEDICARE ==
[2024-08-10 16:44] LABS: INR 0.9 (<1.2); Partial Thromboplastin Time 21.2 sec (22.0-30.0); Prothrombin Time 10.5 sec (10.0-12.5)
[2024-08-10 18:35] LABS: HCT 45.1 % (37.2-46.3); HGB 14.6 g/dL (12.0-15.0); MCH 29.9 pg (27.0-32.0); MCHC 32.4 g/dL (32.0-37.0); MCV 92.4 FL (80.0-97.0); NRBC Per 100 WBC 0 X 10*3/uL (0.00-0.01); Platelet Count 250 X 10*3/uL (140-440); RBC 4.88 X 10*6/uL (4.10-5.20); RDW 12.3 % (11.5-14.5); WBC 5.78 X 10*3/uL (4.50-10.00)
[2024-08-10 18:49] LABS: BUN/Creat Ratio 10.71 Ratio (12.00-20.00); Blood Urea Nitrogen 7.5 mg/dL (9.0-27.0); Chloride 102 mmol/L (96-109); Glucose 108 mg/dL (70-110); Potassium 4.7 mmol/L (3.5-5.5); Sodium 140 mmol/L (135-145)
[2024-08-10 18:50] LABS: ALT 19 U/L (8-44); AST 30 U/L (13-35); Albumin 4.1 g/dL (3.8-4.9); Albumin/Globulin Ratio 1.32 Ratio (1.60-3.17); Alkaline Phosphatase 61 U/L (41-126); Anion Gap 10.20 mmol/L (4.00-12.00); Calcium 9.9 mg/dL (8.7-10.3); Carbon Dioxide 27.8 mmol/L (21.6-31.8); Globulin 3.1 g/dL (1.6-3.3); Total Protein 7.2 g/dL (6.2-8.2)
== END | disposition home or self-care (01) ==
LOC: LABPAT 15:43
PROVIDERS: ATTEND Orthopaedic Surgery
DX: Z01.812 Encounter for preprocedural laboratory examination (principal); E11.9 Type 2 diabetes mellitus without complications; M17.12 Unilateral primary osteoarthritis, left knee; Z22.322 Carrier or suspected carrier of Methicillin resistant Staphylococcus aureus
CPT/HCPCS: 80053; 83036; 85027; 85610; 85730; 87070